=== PATIENT | female | born 1995 | race Two or more races ===

== ENCOUNTER 2021-04-12 04:00 | Emergency (ER) | payer SELFPAY ==
[~2021-04-12] VITALS: Ht 160 cm; Wt 64.4 kg
[2021-04-12] MEDS ORDERED: ONDANSETRON ODT 4 MG TAB PO ONE (06:30)
[2021-04-12 07:33] VITALS: BP 119/71
== END 2021-04-12 08:19 | disposition home or self-care (01) ==
LOC: ER 04:00
DX: J02.9 Acute pharyngitis, unspecified (principal); K52.9 Noninfective gastroenteritis and colitis, unspecified
CPT/HCPCS: 36415; 81002; 81025; 87070; 87426; 87804; 87880; 99283; Q0162